=== PATIENT | female | born 1990 | race Caucasian/White ===

== ENCOUNTER 2019-03-20 15:44 | Outpatient (CLI) | payer MEDICAID ==
[~2019-03-20] VITALS: Ht 157.5 cm; Wt 67.5 kg
[~2019-03-20 15:44] MED LIST: PREN-39 PO
[2019-03-20 15:49] VITALS: Ht 157.5 cm; Wt 67.5 kg
[2019-03-20] MEDS ORDERED: TERBUTALINE 1 ML ONE (16:36)
[2019-03-20] MEDS ORDERED: TERBUTALINE 1 MG/ML INJ SC ONE (17:00)
[2019-03-20] MEDS ORDERED: LACTATED RINGER'S 1,000 ML IV SCH (17:00)
--- NOTE | 2019-03-20 18:27 | PN ---
Triage Information Date/Time 03/20/2019 Reason for visit: labor Weeks of Gestation 23 /Para 5 para 4 4 previous C-sections Diabetes: none Hypertention: none Additional information Complaint of onset of "uterine pressure" started this a.m. Upon entering OB triage was noticed to have persistent uterine contractions wh ich were resolved after administration of subcutaneous terbutaline Objective Heart Rate: 140's Contractions: 6-10 Minutes Apart Results/Medications Result Diagram: 03/20/19 1650 Results 24 hrs Laboratory Tests Test 03/20/19 15:20 03/20/19 16:50 Urine Color STRAW Urine Clarity CLEAR Urine pH 6.0 Urine Specific [place] 1.008 Urine Ketones NEGATIVE Urine Nitrite NEGATIVE Urine Bilirubin NEGATIVE Urine Urobilinogen NEGATIVE Urine Leukocyte Esterase NEGATIVE Urine Hemoglobin NEGATIVE Urine Glucose NEGATIVE Urine Total Protein NEGATIVE White Blood Count 11.1 H Red Blood Count 3.66 L Hemoglobin 9.1 L Hematocrit 29.6 L Mean Corpuscular Volume 80.9 L Mean Corpuscular Hemoglobin 24.9 L Mean Corpuscular Hemoglobin Concent 30.7 L Red Cell Distribution Width 14.7 H Platelet Count 273 Mean Platelet Volume 10.8 H Immature Granulocytes % 1.100 H Neutrophils % 71.4 Lymphocytes % 18.2 Monocytes % 7.6 Eosinophils % 1.5 Basophils % 0.2 Nucleated Red Blood Cells % 0.0 Immature Granulocytes # 0.120 H Neutrophils # 7.9 H Lymphocytes # 2.0 Monocytes # 0.8 Eosinophils # 0.2 Basophils # 0.0 Nucleated Red Blood Cells # 0.0 Medications Current Medications Lactated Ringer's 1,000 ml @ 250 mls/hr Q4H IV Last administered on 03/20/19at 16:47; Admin Dose 250 MLS/HR; Start 03/20/19 at 17:00 Imaging Results BPD = 5.9 cm, 24 weeks and 1 day HC = 21.2 cm, 23 weeks and 2 days AC = 18.5 cm, 23 weeks and 2 days FL = 4.2 cm, 23 weeks and 4 days The EFW = 592 g, 64%ile based on LMP age. Cervix: Length: 3.8 cm. Disposition: Discharge Assessment/Plan Will DC home on bed and pelvic rest Place patient on disability for reminder of her Patient was recommended to refer back to OB triage in case of recurrence of his symptoms Continue [place] weekly basis FLOR RENTERIA MD Mar 20, 2019 18:27
[2019-03-20] MEDS ORDERED: PREN-93 PO (18:41)
--- NOTE | 2019-03-20 19:35 | TRIAGE ---
OB Triage Datetime Report Generated by CPN: 03/20/2019 19:35 Datetime: 03/20/2019 16:35 Stage of : OB Triage Labor Evaluation Frequency: NONE Monitor Mode: External Resting Tone [place]: Relaxed Contraction Comments: DENIES FEELING PAIN AT THIS ITME Heart Rate FHR Baseline Rate: 140 Monitor Mode: External US Variability: Moderate 6-25 bpm Accelerations: 10X10 Decelerations: None Category: Category I Pain Assessment Pain Scale: 0 Pain Presence: None/Denies Pain Type: N/A Pain Goal: 0 Datetime: 03/20/2019 16:03 Maternal Assessment Level of Consciousness: Fully Conscious DTR's/Clonus: DTRs 1+ Headache: Denies Blurred Vision: No Nausea/Vomiting: Denies RUQ Epigastric Pain: Denies Facial Edema: None Labor Evaluation Frequency: NONE Monitor Mode: External Resting Tone [place]: Relaxed Heart Rate FHR Baseline Rate: 140 Monitor Mode: External US Variability: Moderate 6-25 bpm Accelerations: 10X10 Decelerations: None Category: Category I Pain Assessment Pain Scale: 0 Pain Presence: None/Denies Pain Type: N/A Pain Goal: 3 Vaginal Exam Membrane Status: Intact Datetime: 03/20/2019 15:47 Stage of : OB Triage Assessment Type: Triage Maternal Assessment Level of Consciousness: Fully Conscious DTR's/Clonus: DTRs 2+; No Clonus Headache: Denies Blurred Vision: No Respiratory Effort: Unlabored; Regular Rhythm; Equal Expansion Breath Sounds, Left: Clear and Equal Breath Sounds, Right: Clear and Equal Nausea/Vomiting: Denies RUQ Epigastric Pain: Denies Lower Extremities Edema: None Degree: None Upper Extremities Edema: None Degree: None Facial Edema: None Fall Risk Assessment History of Falling: (0) No Secondary Diagnosis: (0) No Ambulatory Aid: (0) Bedrest/Nurse Assist IV Therapy: (0) No Gait: (0) Normal/Bedrest/Immobile Mental Status: (0) Oriented to Own Ability Fall Score: 0 Fall Risk Score Definition: No Risk: No action required Datetime: 03/20/2019 15:46 Time of Arrival: 03/20/2019 15:46 EGA: 23.0 Arrived By: Ambulatory Arrived From: Office Chief Complaint: PT CAME IN C/O UC'S AND TIGHNESS OM HER ABDOMEN SINCE THIS AM. PT HAS HX OF PRETER M DELIVERIES Movement: Present Contractions: Irregular Time Contractions Began: 03/20/2019 06:00 Rupture of Membranes: Denies Vaginal Discharge: Denies Recent Sexual Intercouse: Denies Abdominal Trauma: Not Applicable Additional Patient Complaints: NONE Initial Plan: MONITOR, UA, CX LENGHT, EFW, TERBUTALINE, CBC, IV
== END 2019-03-20 18:50 | disposition home or self-care (01) ==
LOC: OBT 15:44 → L-D 15:45 → OBT 18:50
PROVIDERS: ATTEND Obstetrics & Gynecology
DX: O62.9 Abnormality of forces of labor, unspecified (principal); O34.212 Maternal care for vertical scar from previous cesarean delivery; O47.02 False labor before 37 completed weeks of gestation, second trimester; Z3A.23 23 weeks gestation of pregnancy
CPT/HCPCS: 36415; 76815; 76817; 81003; 85025; 87086; 96360; 96361; J3105; J7120; Z7500; G0463

== ENCOUNTER 2019-07-03 18:00 | Outpatient (CLI) | payer MEDICAID ==
[~2019-07-03] VITALS: Ht 154.9 cm; Wt 70.7 kg
[~2019-07-03 18:00] MED LIST changes: +ACET325T33 PO; +IBUP800T48 PO; +PREN-93 PO
[2019-07-03 18:04] VITALS: Ht 154.9 cm; Wt 70.7 kg
[2019-07-03 18:10] VITALS: BP 121/77; PULSE 93; RESP 18
[2019-07-03] MEDS ORDERED: LACTATED RINGER'S 1,000 ML IV ONE (19:30)
[2019-07-03] MEDS ORDERED: LACTATED RINGER'S 1,000 ML IV SCH (20:30)
--- NOTE | 2019-07-03 21:42 | PN ---
Triage Information Date/Time July 03, 2019 Reason for visit: Uterine contractions Weeks of Gestation 38w /Para 5/4 Diabetes: none Hypertention: none Additional information Pt was told to come in if she had any contractions but she has always appeared very comfortable and denies any leaking or bleeding. PMHx: none. PSHx: x 4. NKDA Objective Vital Signs Date Temp Pulse Resp B/P (MAP) Pulse Ox O2 O2 Flow FiO2 Time Delivery Rate 07/03/19 98.3 93 18 121/77 Room Air 18:10 (92) Heart Rate: 120's (actually around 115 BPM) Heart Rate Comments Accels to 150 BPM. No decels. Contractions: >10 Minutes Apart Results/Medications Results 24 hrs Laboratory Tests Test 07/03/19 18:30 Urine Color YELLOW Urine Clarity CLEAR Urine pH 6.0 Urine Specific [place] 1.019 Urine Ketones NEGATIVE Urine Nitrite NEGATIVE Urine Bilirubin NEGATIVE Urine Urobilinogen NEGATIVE Urine Leukocyte Esterase NEGATIVE Urine Microscopic RBC 69 H Urine Microscopic WBC 3 Urine Squamous Epithelial Cells FEW Urine Mucus FEW A Urine Hemoglobin 1+ H Urine Glucose NEGATIVE Urine Total Protein NEGATIVE Medications Current Medications Lactated Ringer's 1,000 ml @ 125 mls/hr Q8H IV Last administered on 07/03/19at 20:45; Admin Dose 125 MLS/HR; Start 07/03/19 at 20:30 Imaging Results BPP 07/06. GIOVANI 12.2 cm. VTX. Disposition: Discharge Assessment/Plan A: IUP at 38 weeks. Previous x 4. False labor. P: D/C home. Pt is scheduled for her repeat 07/10. She has an appt at the clinic in 2 days. RAFFY FERRELL MD Jul 03, 2019 21:42
--- NOTE | 2019-07-03 22:07 | TRIAGE ---
OB Triage Datetime Report Generated by CPN: 07/03/2019 22:06 Datetime: 07/03/2019 19:00 Labor Evaluation Frequency: x2 Monitor Mode: External Duration (sec)2399: 40-80 Quality: Mild Pattern: Normal: <= 5 Contractions in 10 Minutes Resting Tone [place]: Relaxed Heart Rate FHR Baseline Rate: 130 Monitor Mode: External US Variability: Moderate 6-25 bpm Accelerations: 15X15 Decelerations: None Category: Category I Pain Presence: None/Denies Pain Type: N/A Datetime: 07/03/2019 18:30 Labor Evaluation Frequency: x2 Monitor Mode: External Duration (sec)2399: 60 Pattern: Normal: <= 5 Contractions in 10 Minutes Resting Tone [place]: Relaxed Heart Rate FHR Baseline Rate: 135 Monitor Mode: External US Variability: Moderate 6-25 bpm Accelerations: 15X15 Decelerations: None Category: Category I Pain Assessment Pain Scale: 4 Pain Presence: Intermittent Pain Type: Contraction Pain Location: Abdomen Pain Relief Measures: Comfort Measures Datetime: 07/03/2019 18:12 Assessment Type: Ongoing Assessment Maternal Assessment Level of Consciousness: Keenly Alert, Responsive DTR's/Clonus: DTRs 2+ Headache: Denies Blurred Vision: No Respiratory Effort: Unlabored; Regular Rhythm; Equal Expansion Breath Sounds, Left: Clear and Equal Breath Sounds, Right: Clear and Equal Nausea/Vomiting: Present RUQ Epigastric Pain: Denies Lower Extremities Edema: None Upper Extremities Edema: None Facial Edema: None Fall Risk Assessment History of Falling: (0) No Secondary Diagnosis: (0) No Ambulatory Aid: (0) Bedrest/Nurse Assist IV Therapy: (0) No Gait: (0) Normal/Bedrest/Immobile Mental Status: (0) Oriented to Own Ability Fall Score: 0 Fall Risk Score Definition: No Risk: No action required Datetime: 07/03/2019 18:11 Time of Arrival: 07/03/2019 17:56 EGA: 38.0 Arrived By: Ambulatory Arrived From: Home Movement: Present Contractions: Occasional Rupture of Membranes: Denies Vaginal Bleeding: None Vaginal Discharge: Denies Recent Sexual Intercouse: Denies Abdominal Trauma: Not Applicable Patient Complaints: Contractions; Back Pain Time Provider Notified: 07/03/2019 18:56 Provider Notified: Dr Martins Initial Plan: TOCO, EFM, V/S Datetime: 03/20/2019 18:45 Stage of : OB Triage Heart Rate FHR Baseline Rate: 150 Monitor Mode: Doppler Datetime: 03/20/2019 18:44 Maternal Assessment Level of Consciousness: Fully Conscious DTR's/Clonus: DTRs 1+ Headache: Denies Blurred Vision: No Respiratory Effort: Unlabored Breath Sounds, Left: Clear and Equal Breath Sounds, Right: Clear and Equal Nausea/Vomiting: Denies RUQ Epigastric Pain: Denies Facial Edema: None Labor Evaluation Frequency: X1 Monitor Mode: External Duration (sec)2399: 60 Quality: Mild Pattern: Normal: <= 5 Contractions in 10 Minutes Resting Tone [place]: Relaxed Pain Assessment Pain Scale: 0 Pain Presence: None/Denies Pain Type: N/A Pain Goal: 3 Vaginal Exam Membrane Status: Intact Datetime: 03/20/2019 18:37 Heart Rate FHR Baseline Rate: 150 Monitor Mode: External US Variability: Moderate 6-25 bpm Accelerations: 10X10 Decelerations: None Category: Category I Datetime: 03/20/2019 17:00 Stage of : OB Triage Labor Evaluation Frequency: X1 Monitor Mode: External Duration (sec)2399: 60 Quality: Mild Resting Tone [place]: Relaxed Pain Assessment Pain Scale: 0 Pain Presence: None/Denies Pain Type: N/A Pain Goal: 0 Datetime: 03/20/2019 15:47 Fall Score: 0 Fall Risk Score Definition: No Risk: No action required Datetime: 03/20/2019 15:46 EGA: 23.0 Time Provider Notified: 03/20/2019 16:00 Provider Notified: THOMAS
== END 2019-07-03 21:38 | disposition home or self-care (01) ==
LOC: OBT 18:00 → L-D 18:01 → OBT 21:38
PROVIDERS: ATTEND Obstetrics & Gynecology
DX: O62.9 Abnormality of forces of labor, unspecified (principal); Z3A.38 38 weeks gestation of pregnancy
CPT/HCPCS: 36415; 76818; 81001; 87086; 96360; J7120; Z7500; G0463

== ENCOUNTER 2019-07-10 12:00 | Inpatient (IN) | payer MEDICAID ==
[~2019-07-10] VITALS: Ht 154.9 cm; Wt 70.0 kg
[2019-07-10] MEDS ORDERED: AZITHROMYCIN 500MG/NS (PMX) 250 ML IV SCH (13:30)
[2019-07-10] MEDS ORDERED: MISOPROSTOL 200 MCG TAB PR PRN ×2 (13:30→22:00)
[2019-07-10] MEDS ORDERED: METHYLERGONOVINE 0.2 MG INJ IM PRN ×2 (13:30→22:00)
[2019-07-10] MEDS ORDERED: CEFAZOLIN 2 GM/50 ML (PMX) 50 ML IVPB SCH ×2 (13:30→22:00)
[2019-07-10] MEDS ORDERED: OXYTOCIN 30 UNITS/LR 500 ML IV PRN ×2 (13:30→22:00)
[2019-07-10] MEDS ORDERED: CARBOPROST 250 MCG INJ IM PRN ×2 (13:30→22:00)
[2019-07-10 13:52] VITALS: BP 133/82; PULSE 62; RESP 18; Ht 154.9 cm; Wt 70.0 kg
[2019-07-10] MEDS: LACTATED RINGER'S 1,000 ML IV SCH ×2 (14:03→15:42)
[2019-07-10] MEDS ORDERED: LACTATED RINGER'S 1,000 ML IV ONE (14:05)
--- NOTE | 2019-07-10 14:05 | PREAC ---
Date/Time of Note Date/Time of Note DATE: 07/10/19 TIME: 14:04 Anesthesia Eval and Record Evaluation Time Pre-Procedure Interview DATE: 07/10/19 TIME: 14:04 Age 29 Sex female NPO: 8 hrs Preoperative diagnosis intrauterine Planned procedure repeat c section Past Medical History Past Medical History: Includes : Gestational age: (39) Surgery & Anesthesia Issues No known issue Meds Anticoagulation: No Beta Mayco within 24 hr: No Reason Beta Mayco not given: Pt. not on B-Mayco Reported Medications Vit No.124/Iron/FA ( Vitamin Tablet) 1 Each Tablet, 1 EACH PO, TAB 03/20/19 Vits W-Ca,Fe,Fa(<1MG) ( Vitamins) 1 Tab Tablet, 1 TAB PO DAILY 12/13/14 Current Medications Lactated Ringer's 1,000 ml @ 125 mls/hr Q8H IV Last administered on 07/10/19at 14:03; Admin Dose 125 MLS/HR; Start 07/10/19 at 13:12 Cefazolin Sodium/ Dextrose 50 ml @ 100 mls/hr ONCE IVPB ; Start 07/10/19 at 13:30 Azithromycin 250 ml @ 250 mls/hr ONCE IV ; Start 07/10/19 at 13:30 Oxytocin/Lactated Ringer's 500 ml @ 0 mls/hr ONCE PRN IV .VAGINAL BLEEDING; S tart 07/10/19 at 13:30 Methylergonovine Maleate (Methergine) 0.2 mg ONCE PRN IM .VAGINAL BLEEDING; S tart 07/10/19 at 13:30 Carboprost Tromethamine (Hemabate) 250 mcg ONCE PRN IM .VAGINAL BLEEDING; Start 07/10/19 at 13:30 Misoprostol (Cytotec) 1,000 mcg ONCE PRN GA .VAGINAL BLEEDING; Start 07/10/19 at 13:30 Meds reviewed: Yes Allergies Coded Allergies: No Known Drug Allergy (Verified Allergy, Unknown, 07/03/19) Allergies Reviewed: Yes Labs/Studies Labs Reviewed: Reviewed by anesthesiologist Result Diagram: 07/10/19 1328 Laboratory Tests 07/10/19 13:28 Blood Bank Test 07/10/19 13:28 Blood Type B POSITIVE Rh Immune Globulin Candidate NO test: N/A Pre-procedure Exam Last vitals Vital Signs Date Temp Pulse Resp B/P (MAP) Pulse Ox O2 O2 Flow FiO2 Time Delivery Rate 07/10/19 98.1 62 18 133/82 13:52 (99) Airway: Adequate mouth opening, Adequate thyromental dist Mallampati: Mallampati II Teeth: Normal Lung: Normal Heart: Normal ASA Physical Status ASA physical status: 2 Emergency: None Planned Anesthetic Neuraxial: Spinal Planned Pain Management Sub-arachniod narcotics, Parenteral pain med Pre-operative Attestations Prior to commencing anesthesia and surgery, the patient was re-evaluated, there was verification of: *The patient's identity *The results of appropriate recent lab work and preoperative vital signs *The above evaluation not changing prior to induction *Anesthetic plan, risk benefits, alternative and complications discussed with patient/family; questions answered; patient/family understands, accepts and wishes to proceed. MOO JACOB MD Jul 10, 2019 14:05
[2019-07-10] MEDS ORDERED: CITRIC ACID/NA CITRATE 30 ML CUP PO ONE (14:30)
[2019-07-10] MEDS ORDERED: FAMOTIDINE 20 MG INJ IV ONE (14:30)
[2019-07-10] MEDS ORDERED: METOCLOPRAMIDE 10 MG INJ IV ONE (14:30)
[2019-07-10] MEDS ORDERED: OXYTOCIN 30 UNITS/LR 500 ML BAG IV ONE (18:05)
[2019-07-10] MEDS ORDERED: morphine SULFATE/PF (10 MG/10 ML) INJ ONE (18:05)
[2019-07-10] MEDS ORDERED: EPHEDrine 25 MG/5 ML SYG ONE (18:16)
[2019-07-10] MEDS ORDERED: ONDANSETRON 4 MG INJ ONE (18:24)
[2019-07-10] MEDS ORDERED: PHENYLephrine (100 MCG/ML) 10ML SYG ONE (18:25)
[2019-07-10] MEDS ORDERED: DIPHENHYDRAMINE 50 MG INJ IV PRN ×2 (18:30→19:30)
[2019-07-10] MEDS ORDERED: MEPERIDINE 25 MG INJ IV PRN (18:30)
[2019-07-10] MEDS ORDERED: PROCHLORPERAZINE 10 MG INJ IV PRN (18:30)
[2019-07-10] MEDS ORDERED: HYDROmorphONE 1 MG/5 ML IV SYRINGE IV PRN ×3 (18:30)
[2019-07-10] MEDS ORDERED: FENTAnyl 50 MCG/ML VIAL IV PRN ×3 (18:30)
[2019-07-10] MEDS ORDERED: KETOROLAC 30 MG INJ IV PRN (18:30)
[2019-07-10] MEDS ORDERED: ONDANSETRON 4 MG INJ IV PRN ×2 (18:30→19:30)
[2019-07-10] MEDS ORDERED: ACETAMINOPHEN 500 MG TAB PO STA (19:16)
[2019-07-10] MEDS ORDERED: KETOROLAC 30 MG INJ IM STA (19:16)
--- NOTE | 2019-07-10 19:16 | HP ---
Date/Time of Note Date/Time of Note DATE: 07/10/19 TIME: 19:14 OB - History Hx of Present Free Text/Dictation 29-year-old female 5 para 4 with 4 previous admitted for repeat on 39 weeks Last Menstrual Period: Oct 10, 2018 Estimated Due Date: Jul 17, 2019 : 5 Para: 4 Care: Good Care Ultrasounds: Normal mid trimester US Obstetrical Complications: None Medical Complications: None Past Family/Social History * Past Medical, Surgical, Family and Obstetric Histories reviewed from chart. Blood Type: O+ Rubella: immune RPR/VDRL: Negative GBS Status: Negative HBsAG: Negative OB Admission Exam Vital Signs Vital Signs Vital Signs Date Temp Pulse Resp B/P (MAP) Pulse Ox O2 O2 Flow FiO2 Time Delivery Rate 07/10/19 98.1 62 18 133/82 13:52 (99) Physical Exam HEENT: WNL Heart: Rhythm Normal Lungs: Clear, Equal Abdomen: WNL Extremities: Normal Reflexes: Normal Cervical Dilatation: None Effacement: 0% Station: Ballotable Membranes: Intact Heart Rate: 140's Accelerations: Accelerations Present Decelerations: No Decelerations Varibility: Marked Contractions on Admission: None Last 72 hours Lab Results CBC & BMP 07/10/19 13:28 OB Assessment/Plan Reason for admission: section Other Assessment: Term gestation Previous x4 Other plan: Repeat FLOR RENTERIA MD Jul 10, 2019 19:16
--- NOTE | 2019-07-10 19:22 | PAC ---
Date/Time of Note Date/Time of Note DATE: 07/10/19 TIME: 19:22 Post-Anesthesia Notes Post-Anesthesia Note Last documented vital signs Vital Signs Date Temp Pulse Resp B/P (MAP) Pulse Ox O2 O2 Flow FiO2 Time Delivery Rate 07/10/19 98.1 62 18 133/82 13:52 (99) Activity: WNL Respiratory function: WNL Cardiovascular function: WNL Mental status: Baseline Pain reasonably controlled: Yes Hydration appropriate: Yes Nausea/Vomiting absent: Yes Comments BP: 135/77 HR: 78 RR: 15 T: 97.8 SaO2: 97% MOO JACOB MD Jul 10, 2019 19:22
--- NOTE | 2019-07-10 19:28 | OPR ---
Operative Report Planned Procedure Free Text/Dictation 29-year-old female with 4 previous at term Procedure date Jul 10, 2019 Procedure(s) Repeat delivery Performed by see signature line Senior Media Planner: BREE SANDHU MD Anesthesiologist: MOO JACOB MD Pre-procedure diagnosis Term gestation Previous x4 [id number] Anesthesia Type: [id number] spinal Post-Procedure Post-procedure diagnosis Status post repeat Findings Live Baby in OT position Clear amniotic fluid Normal-appearing right and left fallopian tubes and ovaries Estimated Blood Loss: 500 - 600 mls Specimen(s) none Grafts/Implant(s) none Complication(s) none Pt Condition post procedure: stable Disposition: PACU Procedure Description Under satisfactory anaesthesia a Pfannenstiel incision was made two fingerbreadth above and parallel to the symphysis of pubis around the previous scar and previous scar was removed Incision was extended laterally to the border of the Recti muscles on either sides. Incision was carried down with sharp and blunt dissection until fascia was reached. Anterior Recti muscle fascia was incised in mid portion and in cision extended laterally to the border of skin incision. Fascia was mobilized from muscle superiorly and Recti muscles were from midline using sharp and blunt dissection. Peritoneum was visualized; Avoiding bowel and bladder it was incised . Incision was extended superiorly and inferiorly. Bladder blade was placed. Posterior peritoneum covering the lower segment of the uterus and lower segment of the uterus were incised.Low transverse uterine incision was made on lower segment of the uterus. Incision extended laterally to the border of Round Lig. on either sides and baby was delivered from OT. position . Amniotic fluid appeared clear. Cord blood was obtained and cord had 3 vessels . Placenta was delivered spontaneously and appeared intact and complete. Intrauterine cavity was rubbed with a laparotomy sponge. Uterine incision was closed in 2 layers using running stitches of No1 Monocryl. Hemostasis appeared secure. Ovaries and Fallopian tubes were within normal limits. Announcing needle, lap sponge and instrument count to be correct abdomen was closed in layers as follows: Peritoneum and Recti muscles with running stitches of 2-0 Vicryl. Fascia with running stitch of No 1 PDS. Subcutaneous tissue with running stitches of 2-0 Monocryl and skin was closed using payal. Patient tolerated the procedure well and was transferred to [facility] in good condition. FLOR RENTERIA MD Jul 10, 2019 19:28
[2019-07-10] MEDS ORDERED: HYDROmorphONE 0.5 MG/0.5 ML SYG IV PRN ×2 (19:30)
[2019-07-10] MEDS ORDERED: ZOLPIDEM 5 MG TAB PO PRN (19:30)
[2019-07-10] MEDS ORDERED: NALOXONE (0.4 MG/ML) INJ IV PRN (19:30)
[2019-07-10 21:55] VITALS: BP 136/76; PULSE 66; RESP 18
[2019-07-10] MEDS ORDERED: LACTATED RINGER'S 1,000 ML IV SCH (21:58)
[2019-07-10] MEDS ORDERED: LANOLIN HPA 1 PKT TOP PRN (22:00)
[2019-07-10] MEDS ORDERED: NA PHOSPHATE/BIPHOS 133 ML ENEMA PR PRN (22:00)
[2019-07-10] MEDS: KETOROLAC 30 MG INJ IV PRN (22:20)
[2019-07-10] MEDS: OXYTOCIN 30 UNITS/LR 500 ML IV SCH (22:20)
[2019-07-11] VITALS: BP 131/77; PULSE 69; RESP 18
[2019-07-11] MEDS: CEFAZOLIN 2 GM/50 ML (PMX) 50 ML IVPB SCH ×3 (02:00→17:44)
[2019-07-11 03:45] VITALS: BP 128/67; PULSE 72; RESP 18
[2019-07-11] MEDS: CLINDAMYCIN 300 MG CAP PO SCH ×4 (05:34→18:03)
[2019-07-11 08:00] VITALS: BP 119/67; PULSE 79; RESP 18
[2019-07-11] MEDS: SENNA/DOCUSATE NA (8.6MG/50MG) TAB PO SCH ×2 (08:25→21:32)
[2019-07-11] MEDS: OXYTOCIN 30 UNITS/LR 500 ML IV SCH (08:30)
[2019-07-11] MEDS: KETOROLAC 30 MG INJ IV PRN ×2 (10:18→16:54)
[2019-07-11] MEDS ORDERED: BISACODYL 10 MG SUPP PR ONE (11:30)
[2019-07-11 12:00] VITALS: BP 112/62; PULSE 72; RESP 18
[2019-07-11 16:00] VITALS: BP 114/84; PULSE 84; RESP 18
--- NOTE | 2019-07-11 17:13 | PN ---
Date/Time of Note Date/Time of Note DATE: 07/11/19 TIME: 17:12 Assessment/Plan VTE Prophylaxis VTE Prophylaxis Intervention: ambulation Lines/Catheters IV Catheter Type (from Nrsg): Peripheral IV Assessment/Plan Assessment/Plan Status post postop day #1 We will continue to ambulate and advance diet Provide supportive care Subjective 24 Hr Interval Summary Passing flatus but no bowel movement Constitutional: no complaints, improved, ambulates, BM, flatus, urine output Pain Control: well controlled Exam/Review of Systems Vital Signs Vitals Vital Signs Date Temp Pulse Resp B/P (MAP) Pulse Ox O2 O2 Flow FiO2 Time Delivery Rate 07/11/19 97.7 84 18 114/84 Room Air 16:00 (94) 07/11/19 96 12:00 Intake and Output 07/10/19 07/10/19 07/11/19 1515:00 23:00 07:00 IntakeIntake Total 3250 ml 350 ml OutputOutput Total 975 ml 600 ml BalanceBalance 2275 ml -250 ml Exam Free Text/Dictation Abdomen is soft and nontender with present bowel sounds and does not seem distended Incision is covered Constitutional: alert, oriented, well developed Psych: no complaints, nl mood/affect Head: normocephalic, atraumatic Eyes: nl conjunctiva, EOMI, nl lids, nl sclera ENMT: nl external ears & nose, nl lips & teeth, nl nasal mucosa & septum, mucosa pink and moist Neck: supple, non-tender Respiratory: clear to auscultation, normal air movement Cardiovascular: regular rate and rhythm, nl pulses Gastrointestinal: soft, nl liver, spleen, non-tender Musculoskeletal: nl extremities to inspection, nl gait and stance Extremities: normal pulses Neurological: METER READER CHIEF II-XII intact, nl mental status, nl speech, nl strength Skin: nl turgor, rash or lesions Lymph: nl lymph nodes Results Result Diagram: 07/11/19 0733 FLOR RENTERIA MD Jul 11, 2019 17:13
[2019-07-11] MEDS ORDERED: HYDROCODONE/APAP (5/325) TAB PO PRN (19:30)
[2019-07-11] MEDS ORDERED: OXYCODONE/ACETAMINOPHEN (5/325) TAB PO PRN (19:30)
[2019-07-11 20:24] VITALS: BP 133/79; PULSE 70; RESP 18
[2019-07-11] MEDS: IBUPROFEN 800 MG TAB PO SCH (21:32)
[2019-07-12] MEDS: CLINDAMYCIN 300 MG CAP PO SCH ×4 (00:01→17:48)
[2019-07-12 03:47] VITALS: BP 115/72; PULSE 69; RESP 18
[2019-07-12] MEDS: IBUPROFEN 800 MG TAB PO SCH ×2 (05:58→14:44)
[2019-07-12 08:00] VITALS: BP 132/76; PULSE 56; RESP 18
[2019-07-12] MEDS: SENNA/DOCUSATE NA (8.6MG/50MG) TAB PO SCH (09:00)
[2019-07-12 17:57] VITALS: BP 138/81; PULSE 69; RESP 18
--- NOTE | 2019-07-12 17:58 | DS ---
Date/Time of Note Date/Time of Note Home today or next day DATE: 07/12/19 TIME: 17:57 Obstetrical Discharge Record Final Diagnosis Final Diagnosis: Term delivered Other Final Diagnosis Status post repeat Section Section: Repeat Condition on Discharge Physical Assessment Last Vitals: See nurse's notes Voiding: Yes Bowel Movement: Yes Breast: Soft, non-tender, Filling Fundus: Firm Abdomen and Incision: Abdomen is soft with present bowel sounds Incision is without induration and or erythema Calf Tenderness: No Patient Condition: Good FLOR RENTERIA MD Jul 12, 2019 17:58
[2019-07-12] MEDS ORDERED: ACETAMINOPHEN 325 MG TAB PO PRN (18:00)
--- NOTE | 2019-07-12 18:00 | DS ---
Date/Time of Note Date/Time of Note DATE: 07/12/19 TIME: 17:58 Discharge Summary Admission/Discharge Info Admit Date/Time Jul 10, 2019 at 12:00 Discharge Date/Time July 12 or 2018 Discharge Diagnosis Status post repeat Patient Condition: Good Procedures Repeat section Hx of Present Illness 29-year-old female underwent repeat Hospital Course She had uncomplicated postop course She tolerated diet well and was ambulating without problems She was discharged home on the second or third day with good prognosis and condition Home Meds Reported Medications Vit No.124/Iron/FA ( Vitamin Tablet) 1 Each Tablet, 1 EACH PO, TAB 03/20/19 Vits W-Ca,Fe,Fa(<1MG) ( Vitamins) 1 Tab Tablet, 1 TAB PO DAILY 12/13/14 Follow-up Plan Was asked to refer to clinic on 07/17 for staple removal She was also asked to have pelvic rest no hard activity for 2 months Primary Care Provider Care Physician No Primary Time spent on discharge: > 30 minutes FLOR RENTERIA MD Jul 12, 2019 18:00
--- NOTE | 2019-07-12 18:14 | PD.PPDC ---
[employer] Discharge Instruction Provider Information Physician Information 29-year-old female had repeat Diagnosis [id number] Final Diagnosis: Dptsw2k Status post repeat Condition [id number] Patient Condition: Aceav5j Good Diet Brtxs5Cv Diet: Bthyp1u Resume Regular Diet Activity/Restrictions [id number] Activity: Eezxw9z May Shower [id number] Restrictions: [id number] No Exercising No Lifting Nothing in the Vagina Wound/Drain Care Instructions [id number] Wound/Drain Care Instructions: [id number] Keep clean and dry Follow-up Follow-up with Physician: 4, Day/Days (In clinic for staple removal) Return to clinic for [id number] OB Instructions: [id number] Breast Tenderness Depression Comment: Pelvic rest and no hard activity for 2 months [id number] Surgical Instructions: [id number] Incisional Drainage Incisional Redness FLOR RENTERIA MD Jul 12, 2019 18:14
[2019-07-12 20:00] VITALS: BP 140/56; PULSE 56; RESP 18
[2019-07-13] MEDS ORDERED: DIPHTH/TET/ACEL PERTUSS (ADULT) 0.5 ML VIAL IM* ONE (09:00)
[2019-07-13] MEDS ORDERED: MEASLES,MUMPS,RUBELLA VACCINE INJ SC* ONE (09:00)
--- NOTE | 2019-07-13 23:02 | DELSUM ---
Delivery Summary A-C Datetime Report Generated by CPN: 07/13/2019 23:02 DELIVERY PERSONNEL Metal Drill Operator: ZokaeeLouisePippa MATERNAL INFORMATION Delivery Anesthesia: Spinal Medications in Delivery: see anesthesia Delivery QBL (ml): 600 Placenta Cultured: No Maternal Complications: None LABOR SUMMARY EDC: 07/17/2019 00:00 No. Babies in Womb: 1 Attempted: No Labor Anesthesia: None LABOR INFORMATION Reason for Induction: Not Applicable Group B Beta Strep: Negative Antibiotics # of Doses: 2 Antibiotics Time of Last Dose: 07/10/2019 18:04 Steroids Given: None Reason Steroids Not Administered: Not Applicable MEMBRANES Membranes Rupture Method: Artificial Rupture of Membranes: 07/10/2019 18:36 Length of Rupture (hr): 0.02 Amniotic Fluid Color: Clear Amniotic Fluid Amount: Small Amniotic Fluid Odor: Normal STAGES OF LABOR Stage 3 hr: 0 Stage 3 min: 1 CSECTION DELIVERY Primary Indication: Repeat Elective CSection Urgency: Non Elective CSection Incidence: Repeat Labor: No Labor Elective: Nonelective CSection Incision: Lower Uterine Transverse BABY A INFORMATION Infant Delivery Date/Time: 07/10/2019 18:37 Method of Delivery: Born in Route : No : N/A Forceps: N/A Vacuum Extraction: Successful Shoulder Dystocia : N/A ASSISTED DELIVERY BABY A Catheter Prior to Procedure: Yes Vacuum Number of Pulls: 0 Vacuum Number of PopOffs: 0 Vacuum [employer]room Supervisor: KIWI Total Time Vacuum Applied: 3 SECS Vacuum/Forceps Comment: CONTROLL BY MD SHOULDER DYSTOCIA BABY A Delivery Date/Time: 07/10/2019 18:37 PRESENTATION/POSITION BABY A Presentation: Cephalic Cephalic Presentation: Vertex Vertex Position: N/A Breech Presentation: N/A PLACENTA INFORMATION BABY A Placenta Delivery Time : 07/10/2019 18:38 Placenta Method of Delivery: Manual Removal Placenta Status: Delivered SCORES BABY A Heart Rate 1 min: >100 bpm Resp Effort 1 min: Good Cry Reflex Irritability 1 min: Cough/Sneeze/Pulls Away Muscle Tone 1 min: Active Motion Color 1 min: Body Susank, Extremit Blue Resuscitation Effort 1 min: Tactile Stimulation SCORE 1 MIN: 9 Heart Rate 5 min: >100 bpm Resp Effort 5 min: Good Cry Reflex Irritability 5 min: Cough/Sneeze/Pulls Away Muscle Tone 5 min: Active Motion Color 5 min: Body Susank, Extremit Blue Resuscitation Effort 5 min: Tactile Stimulation SCORE 5 MIN: 9 INFORMATION BABY A Gestational Age at Delivery: 39.0 Gestational Status: Full Term- 39- 40.6 Weeks Infant Outcome : Liveborn, with signs of life Condition : Stable Infant Sex: Female IDENTIFICATION/MEDS BABY A ID Band Number: [id number] ID Band Location: Right Leg; Left Arm Sensor Applied: Yes Sensor Number: [id number] Sensor Location : Cord Clamp Vitamin K Given : Not Given Erythromycin Given: Not Given WEIGHT/LENGTH BABY A Birthweight (gm): 3230 Weight (lb): 7 Infant Weight (oz): 2 Infant Length (in): 19.00 Infant Length (cm): 48.26 CORD INFORMATION BABY A No. Cord Vessels: 3 Nuchal Cord : Around Neck x2, Loose Cord Blood Taken: Yes Infant Suction: Mouth; Nose ASSESSMENT BABY A Infant Complications: None Physical Findings at Delivery: Within Normal Limits Respirations: Appears Normal Nurse Plastics/ALS Called : Yes Infant Care By: RT Transferred To: Remains with Mother
== END 2019-07-12 23:00 | disposition home or self-care (01) | DRG 788 ==
LOC: L-D 12:00 → PP1 21:52
PROVIDERS: ADMIT Obstetrics & Gynecology; ATTEND Obstetrics & Gynecology
PROC: 10D00Z1 Extraction of Products of Conception, Low, Open Approach (ICD-10-PCS; principal; 2019-07-10 15:30)
DX: O34.211 Maternal care for low transverse scar from previous cesarean delivery (principal); Z3A.39 39 weeks gestation of pregnancy; Z37.0 Single live birth
CPT/HCPCS: 85025; 85610; 85730; 86592; 86850; 86900; 86901; 86920; 87340; 99464; J0456; J0690; J1200; J1885; J2274; J2370; J2405; J2590; J2765; J7120

== ENCOUNTER 2019-09-13 08:50 | Emergency (ER) | payer MEDICAID ==
[~2019-09-13] VITALS: Ht 160 cm; Wt 89.0 kg
[~2019-09-13 08:50] MED LIST changes: +NITR-58 PO; +PHEN-537 PO
[2019-09-13 08:59] VITALS: BP 132/66; PULSE 80; RESP 18; Ht 160 cm; Wt 89.0 kg
[2019-09-13] MEDS ORDERED: ACETAMINOPHEN 325 MG TAB PO ONE (10:00)
== END 2019-09-13 10:58 | disposition home or self-care (01) ==
LOC: FTE 08:50
DX: R10.9 Unspecified abdominal pain (principal)
CPT/HCPCS: 81001; 81025; 87086; Z7610; 99283